=== PATIENT | male | born 1980 | race African-American/Black ===

== ENCOUNTER 2017-02-04 11:22 | Emergency (ER) | payer OTHER ==
[~2017-02-04] VITALS: Ht 170.2 cm; Wt 56.7 kg
[2017-02-04] MEDS ORDERED: AMOXICILLIN500 MG ORAL (11:41)
[2017-02-04 12:05] VITALS: BP 120/72
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
== END 2017-02-04 12:05 | disposition home or self-care (01) ==
LOC: EMR 11:53
DX: S01.511A Laceration without foreign body of lip, initial encounter (principal); Y04.2XXA Assault by strike against or bumped into by another person, initial encounter; Y92.89 Other specified places as the place of occurrence of the external cause
CPT/HCPCS: 99283